=== PATIENT | male | born 1980 | race Hispanic/Latino ===

== ENCOUNTER 2022-03-10 20:49 | Emergency (ER) | payer SELFPAY ==
--- OUTSIDE RECORDS SUMMARY | 2022-03-10 20:53 | XMS REPORT | Continuity of Care Document ---
:1980 Author Organization [facility] t Address [address] [place] [address] Care Team Providers Name Role Phone Pcp, Patient Does Not Have A Primary Care Physician [id number] Cody Melgoza NP Attending Clinician CODY MELGOZA Attending Clinician Unavailable Maria C Dupree Attending Clinician Payers Payer Name Policy Type Policy Number Effective Date Expiration Date S ource Problems Condition Condition Condition Status Onset Resolution Last Treating Co mments Source Name Details Category Date Date Treatment Clinician Date No known No known Disease Unive rs active active ity of problems problems [facility] Allergies, Adverse Reactions, Alerts Allergy Allergy Status Severity Reaction(s) Onset Inactive Treating Comm ents Source Name Type Date Date Clinician No Known DA Active U [facility] Allergie 12-01 [facility] s 00:00: e 00 [facility] NO KNOWN Drug Active Univers ALLERGIE Class ity of S [facility] Social History Social Habit Start Date Stop Date Quantity Comments Source Exposure to Not sure University of SARS-CoV-2 [facility] (event) [place] Tobacco use and 2018-12-07 2018-12-07 Smokeless tobacco [facility] exposure 00:00:00 00:00:00 non-user Alcohol intake 2018-12-07 2018-12-07 Current drinker [facility] 00:00:00 00:00:00 of alcohol (finding) Sex Assigned At [birth year] [facility] 00:00:00 00:00:00 Smoking Status Start Date Stop Date Source Unknown if ever smoked [facility] Never smoked tobacco [facility] ospital Medications Ordered Filled Start Stop Current Ordering Indication Dosage Frequency Signature Comments Components Source Medication Medication Date Date Medication? Clinician (SIG) Name Name iopamidol 2020- No [id number] 120mL 120 mL, Univers (ISOVUE 12-02 Intravenou ity o f 370-500 mL) 05:00: 03:49 s, ONCE, 1 [place] injection 00 :00 dose, Tue Medic al 120 mL 12/02/20 at Branch 0000, Routine iopamidol No [id number] 120mL 120 mL, Univers (ISOVUE 12-02 Intravenou ity o f 370-500 mL) 05:00: 03:49 s, ONCE, 1 [place] injection 00 :00 dose, Tue Medic al 120 mL 12/02/20 at Branch 0000, Routine ondansetron Yes [id number] 4mg Take 1 Univers (ZOFRAN 8-31 tablet by ity of ODT) 4 mg 00:00: mouth [place] disintegrat 00 every 8 Medic al ing tablet (eight) Branch hours as needed for Nausea and Vomiting (N/V). ondansetron Yes [id number] 4mg Take 1 Univers (ZOFRAN 8-31 tablet by ity of ODT) 4 mg 00:00: mouth [place] disintegrat 00 every 8 Medic al ing tablet (eight) Branch hours as needed for Nausea and Vomiting (N/V). peg-electro 2020- No [id number] 4000mL Take 4,000 Univers lyte soln 12-02 09-01 mL by ity of (GOLYTELY) 00:00: 04:59 mouth once [place] 236-22.74-6 00 :00 now for 1 Med ical .74 -5.86 dose. Branch gram solution peg-electro 2020- No [id number] 4000mL Take 4,000 Univers lyte soln 12-02 09-01 mL by ity of (GOLYTELY) 00:00: 04:59 mouth once [place] 236-22.74-6 00 :00 now for 1 Med ical .74 -5.86 dose. Branch gram solution ondansetron 2020- No [id number] 4mg Take 1 Univers (ZOFRAN 12-0231 tablet by ity of ODT) 4 mg 00:00: 00:00 mouth [place] disintegrat 00 :00 every 8 Medic al ing tablet (eight) Branch hours as needed for Nausea and Vomiting (N/V). ondansetron 2020- No [id number] 4mg Take 1 Univers (ZOFRAN 12-02- tablet by ity of ODT) 4 mg 00:00: 00:00 mouth [place] disintegrat 00 :00 every 8 Medic al ing tablet (eight) Branch hours as needed for Nausea and Vomiting (N/V). No known No No known Metho di medications 12-[address] 02:59: s [facility] 14 l Polyethylen 2017-0 Yes 1{packe Take 1 U nivers e Glycol 2-17 t} Packet by ity of 3350 17 00:00: mouth [place] gram powder 00 every 24 Medi arile (twenty-fo Branch ur) hours as needed for Constipati on. bisacodyl 2018- Yes 10mg Insert 1 Univ ers (DULCOLAX, 2-17 Suppositor ity of BISACODYL,) 00:00: [place] 10 mg 00 rectum at Medical suppository bedtime as Br anch needed for Constipati on. Polyethylen 2018- Yes 1{packe Take 1 U nivers e Glycol 2-17 t} Packet by ity of 3350 17 00:00: mouth [place] gram powder 00 every 24 Medi ariel (twenty-fo Branch ur) hours as needed for Constipati on. bisacodyl 2018-0 Yes 10mg Insert 1 Univ ers (DULCOLAX, 2-17 Suppositor ity of BISACODYL,) 00:00: [place] 10 mg 00 rectum at Medical suppository bedtime as Br anch needed for Constipati on. Polyethylen 2018-0 Yes 1{packe Take 1 U nivers e Glycol 2-17 t} Packet by ity of 3350 17 00:00: mouth [place] gram powder 00 every 24 Medi ariel (twenty-[facility] ur) hours as needed for Constipati on. bisacodyl 2017-0 Yes 10mg Insert 1 Univ ers (DULCOLAX, 2-17 Suppositor ity of BISACODYL,) 00:00: [place] 10 mg 00 rectum at Medical suppository bedtime as Br anch needed for Constipati on. Vital Signs Vital Name Observation Time Observation Value Comments Source Systolic blood 2020-12-02 06:00:00 143 [facility]Hg[facility] blood 2020-12-02 06:00:00 95 mm[Hg] Unive [facility] Heart rate 2020-12-02 06:00:00 62 /min General acute hospital Respiratory rate 2020-12-02 06:00:00 20 /min [facility] Oxygen saturation in 2020-12-02 06:00:00 98 /min [facility] Arterial blood by [facility] Pulse oximetry [place] Body temperature 2020-12-02 03:08:00 37.17 Sadaf [facility] Body height 2020-12-02 03:08:00 175.3 cm General acute hospital Body weight 2020-12-02 03:08:00 95.255 kg General acute hospital BMI 2020-12-02 03:08:00 31.01 kg/m2 General acute hospital Systolic blood 2018-11-30 03:57:00 135 mm[Hg] Univer [facility] [place] Diastolic blood 2018-11-30 03:57:00 85 mm[Hg] Unive [facility] Heart rate 2018-11-30 03:57:00 76 /min General acute hospital Body temperature 2018-11-30 03:57:00 36.61 Sadaf [facility] Respiratory rate 2018-11-30 03:57:00 18 /min [facility] Body height 2018-11-30 03:57:00 175.3 cm [facility] [place] [facility] [place] Body weight 2018-11-30 03:57:00 90.719 kg [facility]i [facility] [place] [facility] [place] BMI 2018-11-30 03:57:00 29.53 kg/m2 Universi ty [facility] [place] Oxygen saturation in 2018-11-30 03:57:00 97 /min University of Arterial blood by [facility] Pulse oximetry Branch Systolic blood 2018-11-30 03:57:00 135 mm[Hg] Univer [facility] Diastolic blood 2018-11-30 03:57:00 85 mm[Hg] Unive rsity of [facility] Heart rate 2018-11-30 03:57:00 76 /min Universi ty [facility] Body temperature 2018-11-30 03:57:00 36.61 Sadaf [facility] Respiratory rate 2018-11-30 03:57:00 18 /min [facility] Body height 2018-11-30 03:57:00 175.3 cm Universi ty [facility] [place] Body weight 2018-11-30 03:57:00 90.719 kg Universi ty [facility] BMI 2018-11-30 03:57:00 29.53 kg/m2 Universi ty [facility] Oxygen saturation in 2018-11-30 03:57:00 97 /min [place] of Arterial blood by [facility] Pulse oximetry Branch Procedures Procedure Date / Time Performed Performing Clinician Sour e COMP. METABOLIC PANEL 2020-12-02 04:37:00 Cody Melgoza [facility] ([id number]) [facility] CBC WITH DIFF 2020-12-02 04:37:00 Cody Melgoza [facility] URINALYSIS 2020-12-02 04:37:00 Cody Melgoza [facility] CT ABDOMEN PELVIS W 2020-12-02 03:52:23 Cody Melgoza [facility] NOTICE OF PRIVACY 2020-12-02 03:33:52 Doctor Unassigned, [facility] CONSENT/REFUSAL FOR 2020-12-02 03:00:05 Doctor Unassigned, No [facility] AND Name Medical Branch TREATMENT CONSENT/REFUSAL FOR 2018-11-30 04:09:43 Doctor Unassigned, No Un [facility] DIAGNOSIS AND Name Medical Branch TREATMENT Plan of Care Planned Activity Planned Date Details Comments Source Future Scheduled 2022-02-07 [facility] 17:24:49 (#1) [code = COVID-19 VACCINE (#1)] Future Scheduled 2022-02-07 INFLUENZA VACCINE Method [facility] Test 17:24:49 [code = INFLUENZA VACCINE] Future Scheduled 2022-02-07 [facility] Test 17:24:49 VACCINES (1 of 3 - 3-dose series) [code = HEPATITIS B VACCINES (1 of 3 - 3-dose series)] Encounters Start End Encounter Admission Attending Care Care Encounter Source Date/Time Date/Time Type Type Clinicians Facility Department ID 2020-12-01 2020-12-02 Emergency [facility] [id number] Univers 22:09:00 01:41:00 Cody Zelaya [id number] ity [facility] [id number] [facility] [id number] [address] 2020-12-01 2020-12-01 Emergency X [facility] ERT [id number] Univers 22:09:00 22:09:00 CODY gomez [facility] 2018-11-29 2018-11-30 Emergency [facility] [id number] 23:00:10 00:22:00 Maria C Zelaya [id number] [place] [id number] [place] [id number] [facility] 2018-11-29 2018-11-30 Emergency [facility] [id number] Univers 23:00:10 00:22:00 Maria C Zelaya [id number] i ty of [place] [id number] [facility] [id number] [address] Results Test Description Test Time Test Comments Results Result Comments Source CBC WITH DIFF 2020-12-02 05:59:06 Test Item Value Reference Range Interpretation Comme nts WBC (test code = 6690-2) See_Comment [A utomated message] The system which ge nerated this result transmit erin reference range: 4.20 - 1 0.70 10*3/?L. The reference r ligia was not used to interpr et this result as normal/abnor mal. RBC (test code = 789-8) See_Comment [Au tomated message] The system which playnik nerated this result transmit erin reference range: 4.26 - 5 .52 10*6/?L. The reference r ligia was not used to interpr et this result as normal/abnor mal. HGB (test code = 718-7) 14.8 g/dL 12.2-16.4 HCT (test code = 4544-3) 45.0 % 38.4-49.3 MCV (test code = 787-2) 89.6 fL 81.7-95.6 MCH (test code = 785-6) 29.5 pg 26.1-32.7 MCHC (test code = 786-4) 32.9 g/dL 31.2-35.0 RDW-SD (test code = 18671-5) 43.6 fL 38.5-51.6 RDW-CV (test code = 788-0) 13.3 % 12.1-15.4 PLT (test code = 777-3) See_Comment [Au tomated message] The system which playnik nerated this result transmit erin reference range: 150 - 32 8 10*3/?L. The reference range was not used to interpret th is result as normal/abnormal . MPV (test code = 82404-2) 11.3 fL 9.8-13.0 NRBC/100 WBC (test code = See_Comment [ Automated message] The 6582330952) system which playnik nerated this result transmit erin reference range: 0.0 - 10 .0 /100 WBCs. The reference r ligia was not used to interpr et this result as normal/abnor mal. NRBC x10^3 (test code = <0.01 See_Comment [Au tomated message] The 2276955572) system which playnik nerated this result transmit erin reference range: 10*3/?L. The reference range was not u sed to interpret this result as normal/abnormal . GRAN MAT (NEUT) % (test code 59.4 % = 770-8) IMM GRAN % (test code = 0.80 % 9856482890) LYMPH % (test code = 736-9) 28.9 % MONO % (test code = 5905-5) 8.9 % EOS % (test code = 713-8) 1.7 % BASO % (test code = 706-2) 0.3 % GRAN MAT x10^3(ANC) (test 5.36 10*3/uL 1.99-6.95 code = 3845248690) IMM GRAN x10^3 (test code = 0.07 10*3/uL 0.00-0.06 H 7058412012) LYMPH x10^3 (test code = 2.61 10*3/uL 1.09-3.23 731-0) MONO x10^3 (test code = 0.80 10*3/uL 0.36-1.02 742-7) EOS x10^3 (test code = 0.15 10*3/uL 0.06-0.53 711-2) BASO x10^3 (test code = 0.03 10*3/uL 0.01-0.09 704-7) Lab Interpretation (test Abnormal code = 87833-4) [facility] WITH [id number] 05:59:06 Test Item Value Reference Range Interpretation Comments WBC (test code = See_Comment [Automated 2490-2) message] The sy stem which generated this result transmitted reference range : 4.20 - 10.70 10*3/?L. The reference range was not used to interpret this result as normal/abnormal . RBC (test code = See_Comment [Automated 669-8) message] The sy stem which generated this result transmitted reference range : 4.26 - 5.52 10*6/?L. The reference range was not used to interpret this result as normal/abnormal . HGB (test code = 14.8 g/dL 12.2-16.4 718-7) HCT (test code = 45.0 % 38.4-49.3 4544-3) MCV (test code = 89.6 fL 81.7-95.6 787-2) MCH (test code = 29.5 pg 26.1-32.7 785-6) MCHC (test code = 32.9 g/dL 31.2-35.0 786-4) RDW-SD (test code = 43.6 fL 38.5-51.6 98408-7) RDW-CV (test code = 13.3 % 12.1-15.4 788-0) PLT (test code = See_Comment [Automated 777-3) message] The sy stem which generated this result transmitted reference range : 150 - 328 10*3/ ?L. The reference r ligia was not used to interpret this result as normal/abnormal . MPV (test code = 11.3 fL 9.8-13.0 07003-8) NRBC/100 WBC (test See_Comment [Automat ed code = 0705229559) message] The system which generated this result transmitted reference range : 0.0 - 10.0 /100 WBCs. The refer ence range was not u sed to interpret th is result as normal/abnormal . NRBC x10^3 (test code <0.01 See_Comment [Auto mated = 9563152139) message] The s ystem which generated this result transmitted reference range : 10*3/?L. The reference range was not used to interpret this result as normal/abnormal . GRAN MAT (NEUT) % 59.4 % (test code = 770-8) IMM GRAN % (test code 0.80 % = 5080711168) LYMPH % (test code = 28.9 % 736-9) MONO % (test code = 8.9 % 5905-5) EOS % (test code = 1.7 % 713-8) BASO % (test code = 0.3 % 706-2) GRAN MAT x10^3(ANC) 5.36 10*3/uL 1.99-6.95 (test code = 1207234870) IMM GRAN x10^3 (test 0.07 10*3/uL 0.00-0.06 H code = 8901087885) LYMPH x10^3 (test code 2.61 10*3/uL 1.09-3.23 = 731-0) MONO x10^3 (test code 0.80 10*3/uL 0.36-1.02 = 742-7) EOS x10^3 (test code = 0.15 10*3/uL 0.06-0.53 711-2) BASO x10^3 (test code 0.03 10*3/uL 0.01-0.09 = 704-7) Lab Interpretation Abnormal (test code = 92399-0) [facility] Test Item Value Reference Range Interpretation Comments APPEARANCE (test code = Clear Clear 1820233645) COLOR (test code = Straw Yellow A 3682371237) PH (test code = 4.8-8.0 2089895185) SP GRAVITY (test code = >1.060 1.003-1.030 H 2595388018) GLU U QUAL (test code = Normal Normal 8972704670) BLOOD (test code = Negative Negative 5731540431) KETONES (test code = Negative Negative 5863761704) PROTEIN (test code = Negative Negative 2887-8) UROBILIN (test code = Normal Normal 5062019774) BILIRUBIN (test code = Negative Negative 0121984642) NITRITE (test code = Negative Negative 4749619731) LEUK TARSHA (test code = Negative Negative 1605481290) RBC/HPF (test code = See_Comment [Autom ated message] 6758282228) The system [employer] generated this result transmitted ref erence range: 0 - 3 HP F. The reference range was not used to int erpret this result as normal/abnormal . WBC/HPF (test code = See_Comment [Autom ated message] 0029287572) The system [employer] generated this result transmitted ref erence range: 0 - 5 HP F. The reference range was not used to int erpret this result as normal/abnormal . BACTERIA (test code = Negative Negative 2804432559) SQ EPITH (test code = <1 HPF 1877801155) Lab Interpretation (test Abnormal code = 99085-3) [facility] Test Item Value Reference Range Interpretation Comments APPEARANCE (test code = Clear Clear 6250843070) COLOR (test code = Straw Yellow A 4517001122) PH (test code = 4.8-8.0 1914701790) SP GRAVITY (test code = >1.060 1.003-1.030 H 5149362360) GLU U QUAL (test code = Normal Normal 7768556088) BLOOD (test code = Negative Negative 7018226298) KETONES (test code = Negative Negative 0541736791) PROTEIN (test code = Negative Negative 2887-8) UROBILIN (test code = Normal Normal 1907967450) BILIRUBIN (test code = Negative Negative 8899287045) NITRITE (test code = Negative Negative 6141664797) LEUK TARSHA (test code = Negative Negative 0322165672) RBC/HPF (test code = See_Comment [Autom ated message] 1534992387) The system [employer] generated this result transmitted ref erence range: 0 - 3 HP F. The reference range was not used to int erpret this result as normal/abnormal . WBC/HPF (test code = See_Comment [Autom ated message] 9464696547) The system [employer] generated this result transmitted ref erence range: 0 - 5 HP F. The reference range was not used to int erpret this result as normal/abnormal . BACTERIA (test code = Negative Negative 2206757957) SQ EPITH (test code = <1 HPF 4659203603) Lab Interpretation (test Abnormal code = 02215-4) [facility][id number][facility]2020-12-02 05:12:43 Test Item Value Reference Range Interpretation Comments NA (test code = 135 mmol/L 135-145 3185142172) K (test code = 4.0 mmol/L 3.5-5.0 9231266118) CL (test code = 99 mmol/L 98-108 5990928535) CO2 TOTAL (test code = 28 mmol/L 23-31 7318149758) AGAP (test code = 2-16 6879283416) BUN (test code = 16 mg/dL 7-23 3395947273) GLUCOSE (test code = 80 mg/dL 70-110 4973094322) CREATININE (test code = 0.81 mg/dL 0.60-1.25 0499050399) TOTAL BILI (test code = 0.6 mg/dL 0.1-1.9 8842736140) CALCIUM (test code = 9.5 mg/dL 8.6-10.6 5288135287) T PROTEIN (test code = 8.2 g/dL 6.3-8.2 9190647619) ALBUMIN (test code = 4.3 g/dL 3.5-5.0 0225595168) ALK PHOS (test code = 108 U/L 34-122 9391380338) ALTv (test code = 169 U/L 5-50 H 1742-6) AST(SGOT) (test code = 105 U/L 13-40 H 0635128696) eGFR (test code = mL/min/1.73m2 9124779788) MEKA (test code = MEKA) Association of Glomerular Filtration Rate (GFR) and Staging of Kidney Disease* + --+ --+ ------+| GFR (mL/min/1.73 m2) ?| With Kidney Damage ?| ?Without Kidney Damage+ --------+ --------+ +| ?>90 ?| ?Stage one ?| ? Normal ?+ ---+ ---+ -------+| ?60-89 ?| ?Stage two ?| ? Decreased GFR ? + --+ --+ ------+| ?30-59 ?| ?Stage three ?| ? Stage three ? + --+ --+ ------+| ?15-29 ?| ?Stage four ? | ? Stage four ?+ ---+ ---+ -------+| ?<15 (or dialysis) ? ?| ?Stage five ? | ? Stage five ?+ ---+ ---+ -------+ *Each stage assumes the associated GFR level has been in effect for at least three months. ?Stages 1 to 5, with or without kidney disease, indicate chronic kidney disease. Notes: Determination of stages one and two (with eGFR >59mL/min/1.73 m2) requires estimation of kidney damage for at least three months as defined by structural or functional abnormalities of the kidney, manifested by either:Pathological abnormalities or Markers of kidney damage (including abnormalities in the composition of the blood or urine or abnormalities in imaging tests). Lab Interpretation Abnormal (test code = 93323-3) [facility]. METABOLIC PANEL ([id number])2020-12-02 05:12:43 Test Item Value Reference Range Interpretation Comments NA (test code = 8045037505) 135 mmol/L 135-145 K (test code = 9436165842) 4.0 mmol/L 3.5-5.0 CL (test code = 8171202884) 99 mmol/L 98-108 CO2 TOTAL (test code = 3360214203) 28 mmol/L 23-31 AGAP (test code = 4860767368) 2-16 BUN (test code = 8505949776) 16 mg/dL 7-23 GLUCOSE (test code = 7758072032) 80 mg/dL 70-110 CREATININE (test code = 0.81 mg/dL 0.60-1.25 4415888692) TOTAL BILI (test code = 0.6 mg/dL 0.1-1.7 1031642155) CALCIUM (test code = 3262233192) 9.5 mg/dL 8.6-10.6 T PROTEIN (test code = 4150194656) 8.2 g/dL 6.3-8.2 ALBUMIN (test code = 1860743403) 4.3 g/dL 3.5-5.0 ALK PHOS (test code = 6200866450) 108 U/L 34-122 ALTv (test code = 1742-6) 169 U/L 5-50 H AST(SGOT) (test code = 1866793463) 105 U/L 13-40 H eGFR (test code = 9815679023) mL/min/1.73m2 MEKA (test code = MEKA) Lab Interpretation (test code = Abnormal 03824-1) [facility]- XR ABD ACUTE [id number] 15:35:00 Name: LUNA HIRSCH [facility] : 1980 Age/S:38 /M [address] [facility] Unit#:[id number] Loc: [place] [address] Phys: Clay Kennedy MD DisDate: PHONE #: [phone] Status: REG ER FAX #: [phone] Exam Date: 12/01/2018 Reason: constipation EXAMS: CPT CODE: [id number] XR ABD ACUTE W/CHEST 04115 EXAM: Acute abdomen series with chest; 4views; INFORMATION: Constipation; abdominal pain; FINDINGS: Unremarkable bowel gas pattern; moderate amount of stool within the colon; no evidence of bowel obstruction; no free intraperitoneal air. Pelvic phleboliths; no other abnormal calcifications. The chest x-ray shows no abnormality; lungs are clear; no infiltrates, no edema; no effusions; no pneumothorax. Unremarkable cardiac mediastinal silhouette. IMPRESSION: No evidence of acute abdominal, pelvic or thoracic abnormalities. at 1534 Reported and signed by: Mikal Barrett M.D. CC: Clay Kennedy MD Technologist: LUCIAN BERNARD, (R),CT Trnscrpt Data: 12/01/2018 (5590) tANA Orig Print D/T: S: 12/01/2018 (7032) PAGE 1 Signed Report"
[2022-03-10 21:50] LABS: Urine Blood 3+ (Negative); Urine Glucose Negative (Negative); Urine Protein 1+ (Negative); Urine Specific Gravity 1.025 (1.005-1.030)
[2022-03-10 22:08] LABS: Urine Crystals Unidentified Few /HPF (None Seen); Urine RBC >50 /HPF (None Seen)
[2022-03-10 23:52] LABS: Hematocrit 41.3 % (39.6-49.0); MCV 88.2 fL (80-100); MPV 9.3 fL (7.6-11.3); RBC Red Blood Cell Count 4.68 M/uL (4.33-5.43)
[2022-03-11 00:04] LABS: Albumin 3.4 g/dL (3.4-5.0); Bilirubin Total 0.3 mg/dL (0.2-1.0); Potassium 3.8 mmol/L (3.5-5.1); Protein, Total 7.3 g/dL (6.4-8.2)
--- NOTE | 2022-03-11 00:56 | ER ---
Nurse's Notes [facility] Name: Hair Powers Age: 41 yrs Sex: Male : 1980 Arrival Date: 03/10/2022 Time: 20:53 Bed 5 Private MD: Diagnosis: Gross hematuria;Kidney Stone/ Calculus in urethra Presentation: 03/10 21:01 Chief complaint: Chief complaint: Patient states: "This morning I my parts were tw5 bothering me. I went home early from work. About two hours ago and I went to the restroom and I was urinating blood. ". Coronavirus screen: Vaccine status: Patient reports being unvaccinated. Ebola Screen: Patient negative for fever greater than or equal to 101.5 degrees Fahrenheit, and additional compatible Ebola Virus Disease symptoms Patient denies exposure to infectious person. Patient denies travel to an Ebola-affected area in the 21 days before illness onset. Initial Sepsis Screen: Does the patient meet any 2 criteria? No. Patient's initial sepsis screen is negative. Does the patient have a suspected source of infection? No. Patient's initial sepsis screen is negative. Risk Assessment: Do you want to hurt yourself or someone else? Patient reports no desire to harm self or others. Onset of symptoms was March 10, 2022 at 19:00. 21:01 Method Of Arrival: Ambulatory tw5 21:01 Acuity: ALEXIS 3 tw5 Triage Assessment: 21:03 General: Appears uncomfortable, Behavior is calm, cooperative, appropriate for age. tw5 Pain: Complains of pain in suprapubic area Pain currently is 8 out of 10 on a pain scale. : Reports incontinence, urgency. Historical: - Allergies: 21:03 No Known Allergies; tw5 - Home Meds: 21:03 None [Active]; tw5 - PMHx: 21:03 None; tw5 - PSHx: 21:03 Appendectomy; tw - Immunization history:: Flu vaccine is not up to date. - Social history:: Smoking status: Patient denies any tobacco usage or history of. Screenin:36 Abuse screen: Denies threats or abuse. Nutritional screening: No deficits noted. kl Tuberculosis screening: No symptoms or risk factors identified. Fall Risk None identified. Assessment: 21:15 General: Appears uncomfortable, Behavior is calm, cooperative. Pain: Complains of pain ll3 in pelvis Pain does not radiate. Neuro: Level of Consciousness is awake, alert, obeys commands, Oriented to person, place, time, situation. Respiratory: Respiratory effort is even, unlabored, Respiratory pattern is regular, symmetrical. : Urine is blood tinged, Reports incontinence, pain. Derm: Skin is pink, warm \\T\\ dry. 22:37 Reassessment: Patient appears in no apparent distress at this time. Patient and/or kl family updated on plan of care and expected duration. Pain level reassessed. Patient is alert, oriented x 3, equal unlabored respirations, skin warm/dry/pink. 23:20 Reassessment: Patient and/or family updated on plan of care and expected duration. Pain ll3 level reassessed. Patient is alert, oriented x 3, equal unlabored respirations, skin warm/dry/pink. 03/11 00:45 Reassessment: Patient appears in no apparent distress at this time. Patient and/or kl family updated on plan of care and expected duration. Pain level reassessed. Patient is alert, oriented x 3, equal unlabored respirations, skin warm/dry/pink. Patient states feeling better. Vital Signs: 03/10 21:01 BP 131 / 81; Pulse 57; Resp 18; Temp 98.3; Pulse Ox 96% on R/A; Weight 95.25 kg; Height tw5 5 ft. 8 in. (172.72 cm); Pain 8/10; 22:36 BP 122 / 83; Pulse 68; Resp 20; Pulse Ox 99% on R/A; kl 23:20 BP 136 / 76; Pulse 54; Resp 16; Pulse Ox 100% on R/A; ll3 03/11 01:29 BP 113 / 85; Pulse 72; Resp 18; Pulse Ox 99% on R/A; Pain 0/10; kl 03/10 21:01 Body Mass Index 31.93 (95.25 kg, 172.72 cm) tw5 ED Course: 03/10 20:53 Patient arrived in ED. ja2 21:03 Triage completed. tw5 21:03 Arm band placed on. tw5 21:18 Vale Huff PA-C is PHCP. sb4 21:18 Jayro Fong MD is Attending Physician. sb4 22:36 No provider procedures requiring assistance completed. Inserted saline lock: 20 gauge kl in left antecubital area, using aseptic technique. Blood collected. 23:20 Tiffany Evans, RN is Primary Nurse. ll3 03/11 00:35 CT Abd/Pelvis - IV Contrast Only In Process Unspecified. EDMS 00:55 Aquiles Brady MD is Referral Physician. sb4 01:00 No apparent distress. Resting quietly. Appears to be sleeping. kl 01:30 Patient transferred, IV remains in place. intact, bleeding controlled, No kl redness/swelling at site. Pressure dressing applied. 01:31 Patient has correct armband on for positive identification. kl Administered Medications: 01:29 Drug: Flomax (tamsulosin) 0.4 mg Route: PO; kl Medication: 01:30 VIS not applicable for this client. kl Outcome: 00:56 Discharge ordered by . sb4 01:30 Discharged to home ambulatory. kl 01:30 Condition: improved 01:30 Discharge instructions given to patient, Instructed on discharge instructions, follow up and referral plans. medication usage, Demonstrated understanding of instructions, follow-up care, medications, Prescriptions given X 3. 01:31 Patient left the ED. kl Signatures: Dispatcher [employer] EDMA Susaan Moreno RN RN kl Alexander, Jessica ja2 Wood, Tiffany tw5 Tiffnay Evans RN RN 3 Vale Huff, PA-C PA-C sb4 Corrections: (The following items were deleted from the chart) 03/10 21:03 21:03 PSHx: None; tw5 tw5
--- NOTE | 2022-03-11 00:57 | EDPHYS ---
Physician Documentation [facility] Name: Hair Powers Age: 41 yrs Sex: Male : 1980 Arrival Date: 03/10/2022 Time: 20:53 Bed 5 Private MD: ED Physician Jayro Fong HPI: 03/10 21:41 This 41 yrs old Male presents to ER via Ambulatory with complaints of sb4 hematuria. 21:41 Onset: The symptoms/episode began/occurred today. Patient reports that he noticed blood sb4 in his urine today. He states that the urine gradually became more concentrated with blood. He denies any pain. He does report urinary urgency. States he does have a history of kidney stones, but it does not feel like this. He denies any medical problems or any daily medications.. Historical: - Allergies: 21:03 No Known Allergies; tw5 - Home Meds: 21:03 None [Active]; tw5 - PMHx: 21:03 None; tw5 - PSHx: 21:03 Appendectomy; tw5 - Immunization history:: Flu vaccine is not up to date. - Social history:: Smoking status: Patient denies any tobacco usage or history of. ROS: 21:41 Constitutional: Negative for fever, chills, and weight loss, Eyes: Negative for injury, sb4 pain, redness, and discharge, ENT: Negative for injury, pain, and discharge, Cardiovascular: Negative for chest pain, palpitations, and edema, Respiratory: Negative for shortness of breath, cough, wheezing, and pleuritic chest pain, Abdomen/GI: Negative for abdominal pain, nausea, vomiting, diarrhea, and constipation, MS/Extremity: Negative for injury and deformity, Skin: Negative for injury, rash, and discoloration. Exam: 21:41 Constitutional: This is a well developed, well nourished patient who is awake, alert, sb4 and in no acute distress. Head/Face: Normocephalic, atraumatic. Eyes: Pupils equal round and reactive to light, extra-ocular motions intact. Periorbital areas with no swelling, redness, or edema. Cardiovascular: Regular rate and rhythm with a normal S1 and S2. Respiratory: Lungs have equal breath sounds bilaterally, clear to auscultation and percussion. No rales, rhonchi or wheezes noted. No increased work of breathing, no retractions or nasal flaring. Abdomen/GI: Soft, non-tender, no distension. Skin: Warm, dry with normal turgor. Normal color with no rashes, no lesions, and no evidence of cellulitis. Vital Signs: 21:01 BP 131 / 81; Pulse 57; Resp 18; Temp 98.3; Pulse Ox 96% on R/A; Weight 95.25 kg; Height tw5 5 ft. 8 in. (172.72 cm); Pain 8/10; 22:36 BP 122 / 83; Pulse 68; Resp 20; Pulse Ox 99% on R/A; kl 23:20 BP 136 / 76; Pulse 54; Resp 16; Pulse Ox 100% on R/A; ll3 03/11 01:29 BP 113 / 85; Pulse 72; Resp 18; Pulse Ox 99% on R/A; Pain 0/10; kl 03/10 21:01 Body Mass Index 31.93 (95.25 kg, 172.72 cm) tw5 MDM: 03/10 21:21 Patient medically screened. sb4 03/11 00:56 Data reviewed: vital signs, lab test result(s), radiologic studies, and as a result, I sb4 will discharge patient. 03/10 21:50 Order name: Urine Microscopic Only; Complete Time: 22:09 sb4 03/10 21:50 Order name: Urine Dipstick-Ancillary; Complete Time: 21:51 EDMS 03/10 22:15 Order name: CBC w/o diff; Complete Time: 00:03 sb4 03/10 22:15 Order name: CMP; Complete Time: 00:06 sb4 03/10 22:15 Order name: CT Abd/Pelvis - IV Contrast Only sb4 03/10 21:09 Order name: Urine Dipstick-Ancillary (obtain specimen); Complete Time: 21:52 sb4 Administered Medications: 01:29 Drug: Flomax (tamsulosin) 0.4 mg Route: PO; kl Disposition Summary: 03/11/22 00:56 Discharge Ordered Location: Home sb4 Problem: new sb4 Symptoms: are unchanged sb4 Condition: Stable sb4 Diagnosis - Gross hematuria sb4 - Kidney Stone/ Calculus in urethra sb4 Followup: sb4 - With: - When: As needed - Reason: Worsening of condition, Recheck today's complaints, Re-evaluation by your physician Discharge Instructions: - Discharge Summary Sheet sb4 - Kidney Stones, [id number] sb4 - Form - Return To Work sb4 Forms: - Medication Reconciliation Form sb4 - Thank You Letter sb4 - Antibiotic Education sb4 - Prescription Opioid Use sb4 - Work release form ds4 Prescriptions: - Flomax 0.4 mg Oral capsule - take 1 capsule by ORAL route once daily for 5 days; 5 capsule; Refills: 0, sb4 Product Selection Permitted - Cipro 500 mg Oral Tablet - take 1 tablet by ORAL route every 12 hours for 10 days; 20 tablet; Refills: 0, sb4 Product Selection Permitted - Diclofenac Sodium 75 mg Oral Tablet Sustained Release - take 1 tablet by ORAL route 2 times per day; 30 tablet; Refills: 0, Product sb4 Selection Permitted Signatures: Dispatcher [employer] Susana Lin, RN Sandee Lancaster tw5 Vale Huff PA-C PA-C sb4 Corrections: (The following items were deleted from the chart) 03/10 21:03 21:03 PSHx: None; 5 tw5
[2022-03-11] MEDS ORDERED: TAMSULOSIN 0.4 MG SR CAP ONE (01:20)
[2022-03-11 06:38] VITALS: TEMP 98.3
[2022-03-11 06:41] VITALS: BP 113/85; O2SAT 99
--- NOTE | 2022-03-11 12:48 | RAD REPORT ---
EXAM DESCRIPTION: CT - Abdomen Pelvis W Contrast - 03/11/2022 6:51 am CLINICAL HISTORY: 41 years Male, hematuria TECHNIQUE: Helical CT axial images are obtained from the lung bases to the pubic symphysis with IV c ontrast. No oral contrast was administered. Multiplanar reconstruction. This exam was performed accor ding to our departmental dose-optimization program, which includes automated exposure control, adjust ment of the mA and/or kV according to patient size and/or use of iterative reconstruction technique. COMPARISON: May 24, 2017 FINDINGS: LUNG BASES: No basilar consolidation or effusions. LIVER: Normal in size. Moderate diffuse decreased attenuation. No focal masses. HEPATOBILIARY: Partially contracted gallbladder. No intra- or extrahepatic ductal dilatation. SPLEEN: Normal size. PANCREAS: Normal size and contour. No focal mass. ADRENAL GLANDS: Normal size. No adrenal masses. KIDNEYS: Bilateral kidneys are normal in size without obstructing calculi or hydronephrosis. No nep hrolithiasis. Interval development of small focus of cortical defect medial right upper pole at site of previously seen 3.5 cm simple renal cyst. Left upper pole lateral couple of simple renal cysts catherine suring up to 1.0 cm, no further workup is warranted. No focal solid mass. BOWEL AND MESENTERY: Mild wall thickening with pericolonic fat stranding at the junction of the desce nding and sigmoid colon with subjacent diverticula which may represent sequela of prior diverticuliti s versus low-grade diverticulitis. Superimposed pandiverticulosis. No small or large bowel dilatation . The appendix is not visualized, no secondary signs of appendicitis. No abnormal mesenteric lymphade nopathy. No free fluid or pneumoperitoneum. RETROPERITONEUM: Normal caliber abdominal aorta without aneurysm. No abnormal retroperitoneal lymphad enopathy. PELVIS: There is a 6 x 10 mm calculus within the prostatic portion of the urethra. Urinary bladde r is unremarkable. No prostatomegaly. ABDOMINAL WALL: The abdominal wall is intact. BONES: No suspicious osseous lytic or blastic lesions seen. IMPRESSION: 1. A 6 x 10 mm calculus within the prostatic portion of the urethra. No prostatomegaly . No nephroureterolithiasis or obstructive uropathy. 2. Mild wall thickening with pericolonic fat stranding at the junction of the descending and sigmoi d colon with subjacent diverticula which may represent sequela of prior diverticulitis versus low-gra de diverticulitis. 3. Interval development of small focus of cortical defect medial right upper pole at site of previo usly seen 3.5 cm simple renal cyst, no further workup is warranted. 4. Moderate hepatic steatosis. Electronically signed by: Mark Green MD 03/11/2022 12:58 AM PLASTIC DIE MAKER APPRENTICE Due to temporary technical issues with the PACS/Fluency reporting system, reports are being signed by the in house radiologists without review as a courtesy to insure prompt reporting. The interpreting radiologist is fully responsible for the content of the report.
== END 2022-03-11 01:31 | disposition home or self-care (01) ==
LOC: ER 20:49
DX: N20.0 Calculus of kidney (principal); N21.1 Calculus in urethra; Z87.442 Personal history of urinary calculi
CPT/HCPCS: 36415; 74177; 80053; 81003; 81015; 85027; 99284; Q9967

== ENCOUNTER → 2023-04-02 | Emergency (ER) | payer SELFPAY ==
[~2023-04-02] MED LIST: CEFTRIAXONE 1000 MG/VIAL ONE; KETOROLAC 30 MG/ML INJ ONE; ONDANSETRON 4 MG/2 ML VIAL ONE
--- NOTE | 2023-04-02 18:23 | RAD REPORT ---
EXAM DESCRIPTION: US - Scrotum Testicles - 04/02/2023 5:47 pm CLINICAL HISTORY: Testicular pain COMPARISON: None FINDINGS: Right testicle measures 4.4 x 2.5 x 3.2 centimeters. Echotexture is homogeneous. Normal bl ood flow Left testicle measures c 4 x 2.8 x 2.9 centimeters. Echotexture is homogeneous. Normal blood flow Left epididymis is enlarged with increased blood flow. 1.3 centimeter isoechoic round structure abutt ing the left epididymis represents a torsion of the appendix testis. No blood flow noted Right epididymis is normal in size and echotexture. Small to moderate left hydrocele IMPRESSION: Left epididymitis Torsion of the left appendix testis Normal left testicle
--- NOTE | 2023-04-02 18:58 | RAD REPORT ---
EXAM DESCRIPTION: CT - Stone Protocol - 04/02/2023 6:41 pm CLINICAL HISTORY: Abdominal pain. Left flank pain COMPARISON: 2021 TECHNIQUE: Computed axial tomography of the abdomen pelvis was obtained without oral or IV contrast. Lack of IV and oral contrast limits evaluation of solid organs, appendix, bowel, and vessels. Guan l reformatted images were obtained and reviewed. All CT scans are performed using dose optimization technique as appropriate and may include automated exposure control or mA/KV adjustment according to patient size. FINDINGS: A renal calculus is not seen. An ureteral calculus is not noted. A bladder calculus is not present. No hydronephrosis. Left renal cortical thinning Fatty liver The Spleen, pancreas and adrenals appear grossly normal Diverticula stem from the colon without evidence of diverticulitis. Left scrotal skin thickening. Small to moderate left hydrocele. Left scrotal calcification Mild to moderate anterior subluxation of L5 on S1 with spondylolysis L5 IMPRESSION: Negative for a genitourinary calculus Left scrotal skin thickening. Small to moderate left hydrocele. Refer to a testicular ultrasound same date for additional findings
[2023-04-02 20:26] LABS: Absolute Lymphocytes (CBC) 2.1 K/uL (0.7-4.9); Lymphocytes % 18.8 % (15.3-44.8); MCV 87.7 fL (80-100); MPV 8.4 fL (7.6-11.3); Platelets 279 thou/uL (152-406); RBC Red Blood Cell Count 5.01 M/uL (4.33-5.43)
[2023-04-02 20:47] LABS: Albumin 3.6 g/dL (3.4-5.0); Bilirubin Total 0.7 mg/dL (0.2-1.0); Potassium 4.1 mEq/L (3.5-5.1); Protein, Total 8.6 g/dL (6.4-8.2)
[2023-04-02 20:48] LABS: Specific Gravity 1.014 (1.005-1.030); Urine Bacteria <20 /HPF (<20); Urine Bilirubin NEGATIVE (Negative); Urine Blood Trace (Negative); Urine Clarity Turbid (Clear); Urine Color Light-Yellow (Yellow); Urine Glucose NEGATIVE (Negative); Urine Mucus Slight /HPF (None Seen); Urine Protein NEGATIVE (Negative); Urine RBC <5 /HPF (None Seen); Urine Urobilinogen Normal (Normal); Urine pH 5.5 (5.0-7.0)
--- NOTE | 2023-04-02 21:41 | ER ---
Nurse's Notes [facility] Name: Hair Powers Age: 42 yrs Sex: Male : 1980 Arrival Date: 04/02/2023 Time: 16:45 Bed 9 Private MD: Diagnosis: Epididymitis Presentation: 04/02 18:05 Chief complaint: Left flank pain and blood in urine x 3-4 days, left testicular hb swelling since yesterday, Denies N/V. Coronavirus screen: At this time, the client does not indicate any symptoms associated with coronavirus-19. Ebola Screen: No symptoms or risks identified at this time. Initial Sepsis Screen: Does the patient meet any 2 criteria? No. Patient's initial sepsis screen is negative. Does the patient have a suspected source of infection? No. Patient's initial sepsis screen is negative. Risk Assessment: Do you want to hurt yourself or someone else? Patient reports no desire to harm self or others. Onset of symptoms was March 29, 2023. 18:05 Method Of Arrival: Ambulatory hb 18:05 Acuity: ALEXIS 3 hb Historical: - Allergies: 18:07 No Known Drug Allergies; hb - Home Meds: 18:07 None [Active]; hb - PMHx: 18:07 None; hb - PSHx: 18:07 Appendectomy; hb - Immunization history:: Client reports having NOT received the Covid vaccine. Flu vaccine is not up to date. It has been more than one year since last vaccine. - Social history:: Smoking status: Patient denies any tobacco usage or history of. Screenin:56 [facility] ED Fall Risk Assessment (Adult) History of falling in the last 3 months, pf1 including since admission No falls in past 3 months (0 pts) Confusion or Disorientation No (0 pts) Intoxicated or Sedated No (0 pts) Impaired Gait No (0 pts) Mobility Assist Device Used No (0 pt) Altered Elimination No (0 pt) Score/Fall Risk Level 0 - 2 = Low Risk Oriented to surroundings, Maintained a safe environment, Educated pt \T\ family on fall prevention, incl call for assistance when getting out of bed, Assessed \T\ reinforced patient's understanding of fall precautions, Provided non-skid footwear, Hourly rounding (assess needs \T\ fall precautionary measures) done, Used ambulatory aids as needed (educated on \T\ assisted with), Used gait belt as appropriate. Abuse screen: Denies threats or abuse. Nutritional screening: No deficits noted. Tuberculosis screening: No symptoms or risk factors identified. Assessment: 19:23 General: Appears in no apparent distress. uncomfortable, well groomed, well developed, pf1 Behavior is calm, cooperative, appropriate for age, quiet. 19:23 Pain: Complains of pain in back and pelvis and left testicular pain Pain currently is 4 pf1 out of 10 on a pain scale. Neuro: No deficits noted. Level of Consciousness is awake, alert, obeys commands, Oriented to person, place, time, situation. Cardiovascular: No deficits noted. Capillary refill < 3 seconds Patient's skin is warm and dry. Respiratory: No deficits noted. Airway is patent Respiratory effort is even, unlabored, Respiratory pattern is regular, symmetrical. GI: Reports lower abdominal pain, pelvis. : Reports hematuria. EENT: No deficits noted. No signs and/or symptoms were reported regarding the EENT system. Derm: No deficits noted. No signs and/or symptoms reported regarding the dermatologic system. 20:30 Reassessment: Patient appears in no apparent distress at this time. Patient and/or pf1 family updated on plan of care and expected duration. Pain level reassessed. Patient is alert, oriented x 3, equal unlabored respirations, skin warm/dry/pink. Vital Signs: 18:05 BP 130 / 100; Pulse 94; Resp 16; Temp 99.3(TE); Pulse Ox 100% on R/A; Weight 99.79 kg; hb Height 5 ft. 9 in. ; Pain 4/10; 19:30 BP 151 / 102; Pulse 80; Resp 16; Pulse Ox 100% ; Pain 4/10; pf1 20:30 BP 150 / 96; Pulse 87; Resp 16; Pulse Ox 100% on R/A; pf1 21:30 BP 144 / 86; Pulse 80; Resp 16; Pulse Ox 100% on R/A; pf1 18:05 Body Mass Index 32.49 (99.79 kg, 175.26 cm) hb 18:05 Pain Scale: Adult hb 19:30 Pain Scale: Adult pf1 ED Course: 16:48 Patient arrived in ED. ts1 17:02 [facility] Gal[facility]C [facility] kb 17:02 Keon Chaudhary MD is Attending Physician. kb 17:49 US Scrotum Testicles In Process Unspecified. EDMS 18:07 Triage completed. hb 18:08 Arm band placed on. hb 18:43 CT Stone Protocol In Process Unspecified. EDMS 19:23 Patient has correct armband on for positive identification. Bed in low position. Call pf1 light in reach. 19:23 Arm band placed on right wrist. pf1 20:57 No provider procedures requiring assistance completed. pf1 22:10 Provided Education on: prescription. pf1 22:10 IV discontinued, intact, bleeding controlled, No redness/swelling at site. Pressure pf1 dressing applied. Administered Medications: 21:55 Drug: Ketorolac IVP 15 mg IVP once Route: IVP; Site: right antecubital; pf1 22:10 Follow up: Response: No adverse reaction; Marked relief of symptoms; Pain is decreased pf1 21:55 Drug: Rocephin IV 1 grams IV at calculated rate once; Given slow IV push per pharmacy pf1 instructions Route: IV; Rate: calculated rate; Site: right antecubital; 22:10 Follow up: Response: No adverse reaction; IV Status: Completed infusion pf1 22:00 Drug: Ondansetron IVP 4 mg IVP once; over 2 minutes Route: IVP; Site: right antecubital;pf1 22:10 Follow up: Response: No adverse reaction; Marked relief of symptoms pf1 Medication: 22:10 VIS not applicable for this client. pf1 Outcome: 21:41 Discharge ordered by MD. kb 22:10 Discharged to home ambulatory, pf1 22:10 Condition: improved 22:10 Discharge instructions given to patient, Instructed on discharge instructions, follow up and referral plans. Demonstrated understanding of instructions, follow-up care, medications, Prescriptions given X 1, 22:24 Patient left the ED. pf1 Signatures: Dispatcher [employer] EDMS Estelita Galo FNP-C FNP-Ckb Baxter, Heather RN RN Mariel Coyle RN RN pf1 Maria C Conway, HASEEB PAS ts1 Corrections: (The following items were deleted from the chart) 04/03 06:22 06:21 Patient has correct armband on for positive identification. Bed in low position. pf1 Call light in reach. pf1
--- NOTE | 2023-04-02 21:41 | EDPHYS ---
Physician Documentation [facility] Name: Hair Powers Age: 42 yrs Sex: Male : 1980 Arrival Date: 04/02/2023 Time: 16:45 Bed 9 Private MD: ED Physician Keon Chaudhary HPI: 04/02 22:34 This 42 yrs old Male presents to ER via Ambulatory with complaints of kb Testicular Swelling, Urinary Problem. 22:34 Patient is a 42-year-old male with no medical history who presents for hematuria and kb left flank pain for 2 days with left testicular swelling that started today. Also reports foul-smelling urine. Denies fever, testicular pain.. Historical: - Allergies: 18:07 No Known Drug Allergies; hb - Home Meds: 18:07 None [Active]; hb - PMHx: 18:07 None; hb - PSHx: 18:07 Appendectomy; hb - Immunization history:: Client reports having NOT received the Covid vaccine. Flu vaccine is not up to date. It has been more than one year since last vaccine. - Social history:: Smoking status: Patient denies any tobacco usage or history of. ROS: 22:36 Constitutional: Negative for fever, chills, and weight loss, kb 22:36 : Positive for flank pain, hematuria, foul smelling urine, testicular swelling, 22:36 All other systems are negative, Exam: 22:36 Constitutional: This is a well developed, well nourished patient who is awake, alert, kb and in no acute distress. Head/Face: Normocephalic, atraumatic. ENT: Moist Mucous membranes Cardiovascular: Regular rate Respiratory: Respirations even and unlabored. No increased work of breathing. Talking in full sentences Abdomen/GI: Soft, non-tender. No distention Back: No spinal tenderness. No costovertebral tenderness. Full range of motion. Skin: Warm, dry with normal turgor. Normal color. MS/ Extremity: Pulses equal, no cyanosis. Neurovascular intact. Full, normal range of motion. Neuro: Awake and alert, GCS 15, oriented to person, place, time, and situation. Moves all extremities. Normal gait. 22:36 : CVA tenderness, is absent, Male external genitalia: tenderness, of the left testicle is noted, of the epididymis area, that is moderate, Vital Signs: 18:05 BP 130 / 100; Pulse 94; Resp 16; Temp 99.3(TE); Pulse Ox 100% on R/A; Weight 99.79 kg; hb Height 5 ft. 9 in. ; Pain 4/10; 19:30 BP 151 / 102; Pulse 80; Resp 16; Pulse Ox 100% ; Pain 4/10; pf1 20:30 BP 150 / 96; Pulse 87; Resp 16; Pulse Ox 100% on R/A; pf1 21:30 BP 144 / 86; Pulse 80; Resp 16; Pulse Ox 100% on R/A; pf1 18:05 Body Mass Index 32.49 (99.79 kg, 175.26 cm) hb 18:05 Pain Scale: Adult hb 19:30 Pain Scale: Adult pf1 MDM: 17:02 Patient medically screened. kb 22:35 Differential diagnosis: UTI, Epididymitis, testicular torsion, kidney stone. Data kb reviewed: vital signs, nurses notes. Counseling: I had a detailed discussion with the patient and/or guardian regarding the historical points, exam findings, and any diagnostic results supporting the discharge/admit diagnosis, lab results, radiology results, the need for outpatient follow up, a urologist, to return to the emergency department if symptoms worsen or persist or if there are any questions or concerns that arise at home. ED course: Discussed ultrasound findings, including left appendix testes torsion with Dr. Chaudhary who recommends outpatient follow-up. Discussed this finding with patient and educated on strict return precautions. Verbal understanding received.. 04/02 17:29 Order name: Urinalysis w/ reflexes; Complete Time: 20:53 kb 04/02 18:00 Order name: CBC with Diff; Complete Time: 20:44 bp 04/02 18:00 Order name: CMP; Complete Time: 20:48 bp 04/02 20:54 Order name: Urine Culture EDMS 04/02 17:29 Order name: US Scrotum Testicles; Complete Time: 18:25 kb 04/02 18:00 Order name: CT Stone Protocol; Complete Time: 19:01 bp 04/02 18:00 Order name: IV Saline Lock; Complete Time: 20:20 bp 04/02 18:00 Order name: Labs collected and sent; Complete Time: 20:20 bp Administered Medications: 21:55 Drug: Ketorolac IVP 15 mg IVP once Route: IVP; Site: right antecubital; pf1 22:10 Follow up: Response: No adverse reaction; Marked relief of symptoms; Pain is decreased pf1 21:55 Drug: Rocephin IV 1 grams IV at calculated rate once; Given slow IV push per pharmacy pf1 instructions Route: IV; Rate: calculated rate; Site: right antecubital; 22:10 Follow up: Response: No adverse reaction; IV Status: Completed infusion pf1 22:00 Drug: Ondansetron IVP 4 mg IVP once; over 2 minutes Route: IVP; Site: right antecubital;pf1 22:10 Follow up: Response: No adverse reaction; Marked relief of symptoms pf1 Disposition: 04/03 07:01 Co-signature as Attending Physician, Keon Chaudhary MD I reviewed the patient's care rn provided by the Advanced Practice Provider and agree with the diagnosis and treatment plan. Disposition Summary: 04/02/23 21:41 Discharge Ordered Notes: Location: Home Condition: Stable kb Diagnosis - Epididymitis kb Followup: kb - With: Emergency Department - When: As needed - Reason: Worsening of condition Followup: kb - With: Private Physician - When: 2 - 3 days - Reason: Recheck today's complaints, Continuance of care, Re-evaluation by your physician Discharge Instructions: - Discharge Summary Sheet kb - Epididymitis kb Forms: - Medication Reconciliation Form kb - Thank You Letter kb - Antibiotic Education kb - Prescription Opioid Use kb - Patient Portal Instructions kb - Leadership Thank You Letter kb Prescriptions: - Doxycycline Hyclate 100 mg Oral Tablet - take 1 tablet ORAL route every 12 hours; 20 tablet; Refills: 0, Product kb Selection Permitted Signatures: Dispatcher [employer] Estelita Jean FNP-C FNP-Ckb Nieto, Roman, MD MD rn Baxter, Heather RN Joey Fletcher RN RN bp Finley, Pamala, RN RN pf1
[2023-04-03 00:24] VITALS: BP 150/96; TEMP 99.3; O2SAT 100
== END ==
LOC: ER 16:45
DX: N45.1 Epididymitis (principal)
CPT/HCPCS: 36415; 74176; 76377; 76870; 80053; 81001; 85025; 87077; 87086; 87088; 87186; 96374; 96375; 99284; J0696; J2405

== ENCOUNTER → 2023-06-10 | Emergency (ER) | payer SELFPAY ==
[~2023-06-10] MED LIST changes: +AZITHROMYCIN 250 MG TAB ONE; -CEFTRIAXONE 1000 MG/VIAL ONE; +DIAZEPAM 5 MG TABLET ONE; +GUAIFENESIN/DM 5 ML UCUP ONE; -KETOROLAC 30 MG/ML INJ ONE; -ONDANSETRON 4 MG/2 ML VIAL ONE
[2023-06-10 03:23] LABS: SARS-CoV-2 Antigen Rapid Res Negative (Negative)
--- NOTE | 2023-06-10 03:37 | EDPHYS ---
Physician Documentation [facility] Name: Hair Powers Age: 43 yrs Sex: Male : 1980 Arrival Date: 06/10/2023 Time: 02:19 Bed 5 Private MD: ED Physician Twin Watts HPI: 06/09 02:31 This 43 yrs old Male presents to ER via Unassigned with complaints of Cough, sp4 Shortness Of Breath, shakes, tingling in arms, Runny Nose. 03:30 Male presents with complaint all parameters shakes tingling in the arms runny nose sp4 cough and shortness of breath starting yesterday. She also states he took one quarter of the NyQuil bottle for his symptoms last night but had no success. . 03:31 Patient reports yellow purulent sputum when he coughs. . sp4 Historical: - Allergies: 02:37 No Known Allergies; cm10 - Home Meds: 02:37 None [Active]; cm10 - PMHx: 02:37 None; cm10 - PSHx: 02:37 Appendectomy; cm10 - Immunization history:: Adult Immunizations up to date. - Social history:: Smoking status: Patient denies any tobacco usage or history of. Patient/guardian denies using street drugs, IV drugs. - Family history:: not pertinent. ROS: 03:32 Constitutional: Negative for fever, positive chills, positive cough, positive runny sp4 nose, positive arm tingling and shakes 03:32 All other systems are negative, Exam: 03:32 Constitutional: This is a well developed, well nourished patient who is awake, alert, sp4 appears anxious and tremulous Head/Face: Normocephalic, atraumatic. Eyes: Pupils equal round and reactive to light, extra-ocular motions intact. Lids and lashes normal. Conjunctiva and sclera are not injected. Cornea within normal limits. Periorbital areas with no swelling, redness, or edema. ENT: Nares patent. No nasal discharge, no septal abnormalities noted. Tympanic membranes are normal and external auditory canals are clear. Oropharynx with no redness, swelling, or masses, exudates, or evidence of obstruction, uvula midline. Mucous membranes moist. Neck: Trachea midline, no thyromegaly or masses palpated, and no cervical lymphadenopathy. Supple, full range of motion without nuchal rigidity, or vertebral point tenderness. Chest/axilla: Normal chest wall appearance and motion. Nontender with no deformity. No lesions are appreciated. Cardiovascular: Regular rate and rhythm with a normal S1 and S2. No gallops, murmurs, or rubs. Normal PMI, no JVD. No pulse deficits. Respiratory: Lungs have equal breath sounds bilaterally, clear to auscultation and percussion. No rales, rhonchi or wheezes noted. No increased work of breathing, no retractions or nasal flaring. Abdomen/GI: Soft, with normal bowel sounds. No distension or tympany. No guarding or rebound. No evidence of tenderness throughout. Back: No spinal tenderness. No costovertebral tenderness. Skin: Warm, dry with normal turgor. Normal color with no rashes, no lesions, and no evidence of cellulitis. MS/ Extremity: Pulses equal, no cyanosis. Neurovascular intact. Full, normal range of motion. Neuro: Awake and alert, GCS 15, oriented to person, place, time, and situation. Cranial nerves II-XII grossly intact. Motor strength 5/5 in all extremities. Sensory grossly intact. Psych: Awake, alert, with orientation to person, place and time. Behavior, mood, and affect are within normal limits Vital Signs: 02:35 BP 157 / 95; Pulse 86; Resp 18; Temp 97.3; Pulse Ox 97% ; Weight 95.25 kg; Height 5 ft. cm10 9 in. ; Pain 0/10; 03:40 BP 133 / 73; Pulse 72; Resp 19; Pulse Ox 94% ; Pain 0/10; jj7 03:48 Temp 97.3(TE); tm6 02:35 Body Mass Index 31.01 (95.25 kg, 175.26 cm) cm10 02:35 Pain Scale: Adult cm10 03:40 Pain Scale: Adult jj7 MDM: 02:31 Patient medically screened. sp4 03:25 Data reviewed: vital signs. ED course: EXAMINATION: XR CHEST 2 VIEWS INDICATION: Male, sp4 43 years old, cough and tremors TECHNIQUE: 2 views COMPARISON(S): None. FINDINGS: SUPPORT DEVICES: None. LUNGS/PLEURA: No consolidation, pleural effusion, or pneumothorax. HEART/MEDIASTINUM: Normal size and configuration. OTHER: No acute osseous findings. IMPRESSION: No acute cardiopulmonary findings.. 03:32 Differential Diagnosis: Bronchitis Influenza Upper Respiratory Infection Sinusitis sp4 Pharyngitis Allergic Rhinitis. Consideration of Admission/Observation Escalation of care including admission/observation considered. ED course: Patient has improved after medications in ER. Patient will be given Zithromax to cover for course of bacterial bronchitis. Will be discharged home with dextromethorphan as needed cough and also Zithromax p.o. for the next 5 days.. 06/09 02:31 Order name: Influenza Screen (a \T\ B); Complete Time: 03:25 sp4 06/09 02:31 Order name: SARS RAPID; Complete Time: 03:25 sp4 06/09 02:38 Order name: Chest Pa And Lat (2 Views) XRAY sp4 Administered Medications: 02:48 Drug: Dextromethorphan-Guaifenesin PO Liquid 10 mg-100 mg/5 mL 10 ml PO once Route: PO; tm6 03:37 Follow up: Response: Marked relief of symptoms jj7 02:48 Drug: Diazepam PO 10 mg PO once Route: PO; tm6 03:37 Follow up: Response: Marked relief of symptoms jj7 03:48 Drug: AZITHromycin PO 500 mg PO once Route: PO; tm6 03:50 Follow up: Response: No adverse reaction jj7 Disposition Summary: 06/10/23 03:37 Discharge Ordered Notes: Location: Home sp4 Problem: new sp4 Symptoms: have improved sp4 Condition: Stable sp4 Diagnosis - Acute bronchitis, unspecified sp4 - Other specified anxiety disorders sp4 Followup: sp4 - With: Private Physician - When: 7 - 10 days - Reason: Recheck today's complaints Discharge Instructions: - Discharge Summary Sheet sp4 - Acute Bronchitis, Adult sp4 Forms: - Patient Portal Instructions sp4 Prescriptions: - dextromethorphan-guaifenesin 10-200 mg Oral capsule - take 2 capsule ORAL route every 6 hours PRN cough; 42 capsule; Refills: 0, sp4 Product Selection Permitted - Zithromax Z-Hira 250 mg Oral Tablet - take 1 tablet ORAL route as directed for 5 days Day 1 - take two (2) tablets sp4 one time. Day 2, 3, 4 , 5 take one (1) tablet once daily.; 6 tablet; Refills: 0, Product Selection Permitted Signatures: Dispatcher [employer] Twin [place] MD MD sp4 Shannan Urbano RN RN cm10 Elba Oliva RN RN tm6 Lainey Carr RN jj7
--- NOTE | 2023-06-10 03:37 | ER ---
Nurse's Notes [facility] Name: Hair Powers Age: 43 yrs Sex: Male : 1980 Arrival Date: 06/10/2023 Time: 02:19 Bed 5 Private MD: Diagnosis: Acute bronchitis, unspecified;Other specified anxiety disorders Presentation: 06/09 02:35 Chief complaint: Patient states: Woke up tonight and was jittery and shaking. Pt cm10 reports that before going to bed he drank approximately 1/4 of a bottle of NyQuil. Coronavirus screen: Client denies travel out of the [place] in the last 14 days. At this time, the client does not indicate any symptoms associated with coronavirus-19. Ebola Screen: Patient denies travel to an Ebola-affected area in the 21 days before illness onset. No symptoms or risks identified at this time. Initial Sepsis Screen: Does the patient meet any 2 criteria? No. Patient's initial sepsis screen is negative. Does the patient have a suspected source of infection? No. Patient's initial sepsis screen is negative. Risk Assessment: Do you want to hurt yourself or someone else? Patient reports no desire to harm self or others. Onset of symptoms was June 10, 2023. 02:35 Method Of Arrival: Ambulatory cm10 02:35 Acuity: ALEXIS 3 cm10 Triage Assessment: 02:37 General: Appears in no apparent distress. Behavior is anxious. Pain: Denies pain. cm10 Neuro: No deficits noted. Level of Consciousness is awake, alert, obeys commands, Oriented to person, place, time, situation. Historical: - Allergies: 02:37 No Known Allergies; cm10 - Home Meds: 02:37 None [Active]; cm10 - PMHx: 02:37 None; cm10 - PSHx: 02:37 Appendectomy; cm10 - Immunization history:: Adult Immunizations up to date. - Social history:: Smoking status: Patient denies any tobacco usage or history of. Patient/guardian denies using street drugs, IV drugs. - Family history:: not pertinent. Screenin:35 [facility] ED Fall Risk Assessment (Adult) History of falling in the last 3 months, jj7 including since admission No falls in past 3 months (0 pts) Confusion or Disorientation No (0 pts) Intoxicated or Sedated No (0 pts) Impaired Gait No (0 pts) Mobility Assist Device Used No (0 pt) Altered Elimination No (0 pt) Score/Fall Risk Level 0 - 2 = Low Risk Oriented to surroundings, Maintained a safe environment, Educated pt \T\ family on fall prevention, incl call for assistance when getting out of bed. Abuse screen: Denies threats or abuse. Nutritional screening: No deficits noted. Tuberculosis screening: No symptoms or risk factors identified. Assessment: 02:35 General: Appears in no apparent distress. comfortable, Behavior is cooperative, jj7 appropriate for age, anxious. Cardiovascular: No deficits noted. Rhythm is regular. Respiratory: Airway is patent Respiratory effort is even, unlabored. 03:48 Respiratory: Breath sounds are clear bilaterally. jj7 Vital Signs: 02:35 BP 157 / 95; Pulse 86; Resp 18; Temp 97.3; Pulse Ox 97% ; Weight 95.25 kg; Height 5 ft. cm10 9 in. ; Pain 0/10; 03:40 BP 133 / 73; Pulse 72; Resp 19; Pulse Ox 94% ; Pain 0/10; jj7 03:48 Temp 97.3(TE); tm6 02:35 Body Mass Index 31.01 (95.25 kg, 175.26 cm) cm10 02:35 Pain Scale: Adult cm10 03:40 Pain Scale: Adult jj7 ED Course: 02:22 Patient arrived in ED. gm2 02:29 Lainey Carr RN is Primary Nurse. jj7 02:31 Twin Watts MD is Attending Physician. sp4 02:35 Patient has correct armband on for positive identification. Placed in gown. Bed in low jj7 position. Call light in reach. Side rails up X2. 02:35 No provider procedures requiring assistance completed. jj7 02:37 Triage completed. cm10 02:37 Arm band placed on Patient placed in an exam room, on a stretcher, on pulse oximetry. cm10 02:39 SARS RAPID Sent. tm6 02:39 Influenza Screen (a \T\ B) Sent. tm6 03:05 Chest Pa And Lat (2 Views) XRAY In Process Unspecified. EDMS 03:48 Patient did not have IV access during this emergency room visit. jj7 03:49 Provided Education on: MEASURING MEDICATIONS. MED CUP PROVIDED. jj7 Administered Medications: 02:48 Drug: Dextromethorphan-Guaifenesin PO Liquid 10 mg-100 mg/5 mL 10 ml PO once Route: PO; tm6 03:37 Follow up: Response: Marked relief of symptoms jj7 02:48 Drug: Diazepam PO 10 mg PO once Route: PO; tm6 03:37 Follow up: Response: Marked relief of symptoms jj7 03:48 Drug: AZITHromycin PO 500 mg PO once Route: PO; tm6 03:50 Follow up: Response: No adverse reaction jj7 Medication: 02:35 VIS not applicable for this client. jj7 Outcome: 03:37 Discharge ordered by MD. jj 03:48 Discharged to home ambulatory, with family, jj7 03:48 Condition: improved 03:48 Discharge instructions given to patient, Instructed on discharge instructions, medication usage, Demonstrated understanding of instructions, medications, Prescriptions given X 2, 03:50 Patient left the ED. jj7 Signatures: Dispatcher [employer] EDLainey Broussard RN RN jj7 Twin Watts MD MD sp4 Shannan Urbano RN RN cm10 Jessica Quiroz 2 Elba Oliva RN RN tm6
[2023-06-10 04:08] VITALS: BP 133/73; TEMP 97.3; O2SAT 94
--- NOTE | 2023-06-10 13:36 | RAD REPORT ---
EXAM DESCRIPTION: XR CHEST 2 VIEWS CLINICAL HISTORY: Male, 43 years old, cough and tremors TECHNIQUE: 2 views COMPARISON: None. FINDINGS: SUPPORT DEVICES: None. LUNGS/PLEURA: No consolidation, pleural effusion, or pneumothorax. HEART/MEDIASTINUM: Normal size and configuration. OTHER: No acute osseous findings. IMPRESSION: No acute cardiopulmonary findings. Electronically signed by: Soy Fox MD 06/10/2023 03:17 AM ENERGY CONSERVATION ENGINEER Due to temporary technical issues with the PACS/Fluency reporting system, reports are being signed by the in house radiologists without review as a courtesy to insure prompt reporting. The interpreting radiologist is fully responsible for the content of the report.
== END ==
LOC: ER 02:19
DX: J20.9 Acute bronchitis, unspecified (principal); F41.8 Other specified anxiety disorders; Z11.52 Encounter for screening for COVID-19
CPT/HCPCS: 36415; 71046; 87804; 87811; 99284

== ENCOUNTER 2024-03-05 10:29 | Emergency (ER) | payer SELFPAY ==
[2024-03-05 11:24] LABS: Absolute Eosinophils 0.1 K/uL (0-0.5); Absolute Monocytes 0.7 K/uL (0.1-1.3); Absolute Neutrophil 6.9 K/uL (1.8-8.0); Basophils % 0.5 % (0-1.3); Eosinophils % 1.3 % (0-4.4); Hematocrit 47.2 % (39.6-49.0); Hemoglobin 15.5 g/dL (13.6-17.9); Lymphocytes % 20.5 % (15.3-44.8); MCH 29.5 pg (27.0-35.0); MCHC 32.9 g/dL (32.0-36.0); MCV 89.6 fL (80-100); MPV 9.7 fL (7.6-11.3); Monocytes % 6.9 % (3.3-12.3); Neutrophils % 70.8 % (41.7-73.7); Platelets 251 thou/uL (152-406); RBC Red Blood Cell Count 5.26 M/uL (4.33-5.43); Red Cell Distribution Width 13.4 % (12.1-15.2)
[2024-03-05] MEDS ORDERED: FAMOTIDINE 20 MG/2 ML VIAL IV ONE (11:24)
[2024-03-05] MEDS ORDERED: ONDANSETRON 4 MG/2 ML VIAL ONE (11:24)
[2024-03-05] MEDS ORDERED: MORPHINE 4 MG/ML SYR ONE (11:24)
--- NOTE | 2024-03-05 11:31 | RAD REPORT ---
EXAMINATION: CT ABDOMEN AND PELVIS WITH CONTRAST CLINICAL INDICATION: Abdominal pain TECHNIQUE: CT abdomen and pelvis was performed, after the administration of 100 cc Isovue-300.. Sagit pradeep and coronal reconstructions were obtained. One or more of the following dose reduction techniques were used: Automated exposure control, adjustment of the mA and kV according to patient si ze, and iterative reconstruction. Unless otherwise specified, incidental findings do not require dedicated imaging follow-up. [id number]. Oral contrast was not given which limits evaluation of bowel and appendix. COMPARISON: .February 2024 FINDINGS: Fatty liver. The spleen, pancreas, adrenals and right kidney unremarkable Left renal cortical thinning unchanged Diverticula stem from the colon. Mild to moderate stranding adjacent to the proximal sigmoid colon. N o abscess. No free air. Moderate anterior subluxation L5 on S1. Spondylolysis L5. Small umbilical hernia : IMPRESSION: Mild to moderate sigmoid diverticulitis
[2024-03-05 11:43] LABS: Albumin 3.6 g/dL (3.4-5.0); Albumin/Globulin Ratio 0.7 (1.1-1.8); Anion Gap 6.7 mEq/L (5.0-15.0); Bilirubin Total 0.8 mg/dL (0.2-1.0); Potassium 3.7 mEq/L (3.5-5.1); Protein, Total 8.6 g/dL (6.4-8.2)
[2024-03-05] MEDS ORDERED: AMOX/K CLAV 875 MG TAB ONE (11:51)
--- NOTE | 2024-03-05 11:51 | EDPHYS ---
Physician Documentation [facility] Name: Hair Powers Age: 43 yrs Sex: Male : 1980 Arrival Date: 03/05/2024 Time: 10:29 Bed 15 Private MD: ED Physician Behzad Lantigua HPI: 03/05 10:57 This 43 yrs old Male presents to ER via Ambulatory with complaints of Flank ms3 Pain. 10:57 Hair Powers, a 43-year-old male, presents to the emergency department with right ms3 lower quadrant abdominal pain that began last night. The pain, described as 7 out of 10 in intensity, radiates to his back. He has a history of appendectomy. He reports constipation but no nausea or vomiting. It is uncertain if he had a fever last night as he felt hot but does not believe it was a fever. The pain is primarily in the right lower quadrant but also spreads across the abdomen, including the epigastric area.. Historical: - Allergies: 10:53 No Known Allergies; iw - PSHx: 10:53 Appendectomy; iw - Immunization history:: Adult Immunizations up to date. - Infectious Disease History:: Denies. - Social history:: Smoking status: unknown. ROS: 10:57 Constitutional: Negative for fever, and chills. Cardiovascular: Negative for chest ms3 pain, and palpitations. Respiratory: Negative for shortness of breath, cough, wheezing, and pleuritic chest pain, 10:57 MS/Extremity: Negative for injury and deformity, Skin: Negative for injury, rash, and discoloration, 10:57 Abdomen/GI: Positive for abdominal pain, Exam: 10:57 Constitutional: This is a well developed, well nourished patient who is awake, alert, ms3 and in no acute distress. Chest/axilla: Normal chest wall appearance and motion. Nontender with no deformity. Cardiovascular: Regular rate and rhythm with a normal S1 and S2. No gallops, murmurs, or rubs. Normal PMI, no JVD. No pulse deficits. Respiratory: Lungs have equal breath sounds bilaterally, clear to auscultation and percussion. No rales, rhonchi or wheezes noted. No increased work of breathing, no retractions or nasal flaring. 10:57 Skin: Warm, dry with normal turgor. Normal color with no rashes, no lesions, and no evidence of cellulitis. MS/ Extremity: Pulses equal, no cyanosis. Neurovascular intact. Full, normal range of motion. 10:57 Abdomen/GI: Inspection: abdomen appears normal, Bowel sounds: normal, Palpation: mild abdominal tenderness, in all quadrants, Vital Signs: 10:54 BP 121 / 86; Pulse 73; Resp 16; Temp 98.2; Pulse Ox 99% ; Weight 95.25 kg; Height 5 ft. iw 8 in. ; Pain 7/10; 12:05 BP 122 / 82; Pulse 75; Resp 16 S; Pulse Ox 98% on R/A; kc6 10:54 Body Mass Index 31.93 (95.25 kg, 172.72 cm) iw 10:54 Pain Scale: Adult iw MDM: 10:56 Medical Screening Exam initiated ms3 10:57 Differential diagnosis: pancreatitis, Diverticulitis vs Abdominal pain. ms3 21:27 Data reviewed: vital signs, nurses notes, lab test result(s), and as a result, I will ms3 discharge patient. I considered the following discharge prescriptions or medication management in the emergency department Medications were administered in the Emergency Department. See MAR. Counseling: I had a detailed discussion with the patient and/or guardian regarding the historical points, exam findings, and any diagnostic results supporting the discharge/admit diagnosis, lab results, radiology results, the need for outpatient follow up, to return to the emergency department if symptoms worsen or persist or if there are any questions or concerns that arise at home. Special discussion: Based on the patient's Hx, exam, and Dx evaluation, there is no indication for emergent surgery or inpatient Tx. It is understood by the patient/guardian that if the Sx's persist or worsen they need to return immediately for re-evaluation. ED course: Discussed CT, Labs with patient. Patient to follow up with PMD in 2-3 days. Patient given Rx fro Augmenting. All questions answered. Return precautions discussed to include fevers, worsening symptoms, or any concerns. On re-evaluation patient is a/o x4, nad, non-toxic, ambulatory in ED, speaking full sentences, abdominal exam benign. . 03/05 10:48 Order name: CBC with Diff; Complete Time: 11:33 ms3 03/05 10:48 Order name: CMP; Complete Time: 11:49 ms3 03/05 10:48 Order name: Lipase; Complete Time: 11:49 ms3 03/05 10:48 Order name: CT Abd/Pelvis - IV Contrast Only; Complete Time: 11:33 ms3 03/05 10:48 Order name: IV Saline Lock; Complete Time: 11:22 ms3 03/05 10:48 Order name: Labs collected and sent; Complete Time: 11:22 ms3 Administered Medications: 11:33 Drug: Famotidine IVP 20 mg IVP once; dilute with 10 mL 0.9% NaCl; give over 2 minutes kc6 Route: IVP; Site: left antecubital; 11:53 Follow up: Response: No adverse reaction kc6 11:33 Drug: Ondansetron IVP 4 mg IVP once; over 2 minutes Route: IVP; Site: left antecubital; kc6 11:53 Follow up: Response: No adverse reaction kc6 11:33 Drug: morphine IVP or IV 4 mg IVP once over 4 mins Route: IVP; Infused Over: 4 mins; kc6 Site: left antecubital; 11:53 Follow up: Response: No adverse reaction; Pain is decreased kc6 11:53 Drug: Amoxicillin-Clavulanate PO 875 mg PO once Route: PO; kc6 12:05 Follow up: Response: No adverse reaction kc6 Disposition Summary: 03/05/24 11:50 Discharge Ordered Notes: Location: Home ms3 Condition: Stable ms3 Diagnosis - Diverticulitis of intestine, part unspecified, without perforation or abscess ms3 without bleeding - Abdominal pain, unspecified ms3 Followup: ms3 - With: Fabio Funk DO - When: 2 - 3 days - Reason: Recheck today's complaints Discharge Instructions: - Discharge Summary Sheet ms3 - Abdominal Pain, Adult ms3 - Diverticulitis ms3 Forms: - Medication Reconciliation Form ms3 - Antibiotic Education ms3 - Prescription Opioid Use ms3 - Patient Portal Instructions ms3 - Leadership Thank You Letter ms3 - Work release form kc6 Prescriptions: - Augmentin 875-125 mg Oral Tablet - take 1 tablet ORAL route every 12 hours for 10 days; 20 tablet; Refills: 0, ms3 Product Selection Permitted Signatures: Dispatcher [employer] Samina Kim RN RN iw Behzad Lantigua DO DO ms3 Madie Madrigal, RN RN kc6
--- NOTE | 2024-03-05 11:51 | ER ---
Nurse's Notes [facility] Name: Hair Powers Age: 43 yrs Sex: Male : 1980 Arrival Date: 03/05/2024 Time: 10:29 Bed 15 Private MD: Diagnosis: Diverticulitis of intestine, part unspecified, without perforation or abscess without bleeding;Abdominal pain, unspecified Presentation: 03/05 10:53 Chief complaint: Patient states: right abd pain X 2 weeks was seen here and told he had iw a urine infection. Coronavirus screen: At this time, the client does not indicate any symptoms associated with coronavirus-19. Ebola Screen: No symptoms or risks identified at this time. 10:53 Method Of Arrival: Ambulatory iw 10:53 Acuity: ALEXIS 3 iw 11:35 Initial Sepsis Screen: Does the patient meet any 2 criteria? No. Patient's initial kc6 sepsis screen is negative. Does the patient have a suspected source of infection? No. Patient's initial sepsis screen is negative. Risk Assessment: Do you want to hurt yourself or someone else? Patient reports no desire to harm self or others. Onset of symptoms was March 05, 2024. Historical: - Allergies: 10:53 No Known Allergies; iw - PSHx: 10:53 Appendectomy; iw - Immunization history:: Adult Immunizations up to date. - Infectious Disease History:: Denies. - Social history:: Smoking status: unknown. Screenin:33 [facility] ED Fall Risk Assessment (Adult) History of falling in the last 3 months, kc6 including since admission No falls in past 3 months (0 pts) Confusion or Disorientation No (0 pts) Intoxicated or Sedated No (0 pts) Impaired Gait No (0 pts) Mobility Assist Device Used No (0 pt) Altered Elimination No (0 pt) Score/Fall Risk Level 0 - 2 = Low Risk Oriented to surroundings, Maintained a safe environment. Abuse screen: Denies threats or abuse. Denies injuries from another. Nutritional screening: No deficits noted. Tuberculosis screening: No symptoms or risk factors identified. Assessment: 11:34 General: Appears in no apparent distress. comfortable, well groomed, well developed, kc6 Behavior is calm, cooperative, appropriate for age. Pain: Complains of pain in right upper quadrant and right lower quadrant Pain began years ago. Neuro: Level of Consciousness is awake, alert, obeys commands, Oriented to person, place, time, situation, Appropriate for age. Cardiovascular: Capillary refill < 3 seconds. Respiratory: Airway is patent Trachea midline Respiratory effort is even, unlabored, Respiratory pattern is regular, symmetrical. GI: Abdomen is flat, non-distended, Reports lower abdominal pain, upper abdominal pain, Patient currently denies diarrhea, nausea, vomiting. : No signs and/or symptoms were reported regarding the genitourinary system. EENT: No signs and/or symptoms were reported regarding the EENT system. Derm: No signs and/or symptoms reported regarding the dermatologic system. Skin is intact, is healthy with good turgor, Skin is pink, warm \T\ dry. Musculoskeletal: No signs and/or symptoms reported regarding the musculoskeletal system. Circulation, motion, and sensation intact. Capillary refill < 3 seconds, Range of motion: intact in all extremities. Vital Signs: 10:54 BP 121 / 86; Pulse 73; Resp 16; Temp 98.2; Pulse Ox 99% ; Weight 95.25 kg; Height 5 ft. iw 8 in. ; Pain 7/10; 12:05 BP 122 / 82; Pulse 75; Resp 16 S; Pulse Ox 98% on R/A; kc6 10:54 Body Mass Index 31.93 (95.25 kg, 172.72 cm) iw 10:54 Pain Scale: Adult iw ED Course: 10:33 Patient arrived in ED. iw 10:35 Behzad Lantigua DO is Attending Physician. ms3 10:53 Triage completed. iw 11:11 CT Abd/Pelvis - IV Contrast Only In Process Unspecified. EDMS 11:13 CT completed. Patient tolerated procedure well. Note: 20 g to lt ac by zuri in ct, sj labs collected and sent. 11:20 Madie Madrigal, RN is Primary Nurse. kc6 11:33 Inserted saline lock: 20 gauge in left antecubital area, using aseptic technique. Blood kc6 collected. Flushed with 10 mL NS. Patient maintains SpO2 saturation greater than 95% on room air. 11:33 Patient has correct armband on for positive identification. Bed in low position. Call kc6 light in reach. Side rails up X 1. Pulse ox on. NIBP on. Door closed. Noise minimized. Lights dimmed. Pillow given. 11:34 Arm band placed on. kc6 11:50 Fabio Funk DO is Referral Physician. ms3 12:06 No provider procedures requiring assistance completed. IV discontinued, intact, kc6 bleeding controlled, No redness/swelling at site. Pressure dressing applied. Administered Medications: 11:33 Drug: Famotidine IVP 20 mg IVP once; dilute with 10 mL 0.9% NaCl; give over 2 minutes kc6 Route: IVP; Site: left antecubital; 11:53 Follow up: Response: No adverse reaction kc6 11:33 Drug: Ondansetron IVP 4 mg IVP once; over 2 minutes Route: IVP; Site: left antecubital; kc6 11:53 Follow up: Response: No adverse reaction kc6 11:33 Drug: morphine IVP or IV 4 mg IVP once over 4 mins Route: IVP; Infused Over: 4 mins; kc6 Site: left antecubital; 11:53 Follow up: Response: No adverse reaction; Pain is decreased kc6 11:53 Drug: Amoxicillin-Clavulanate PO 875 mg PO once Route: PO; kc6 12:05 Follow up: Response: No adverse reaction kc6 Medication: 12:06 VIS not applicable for this client. kc6 Outcome: 11:50 Discharge ordered by . ms3 12:06 Discharged to home ambulatory, kc6 12:06 Condition: good 12:06 Discharge instructions given to patient, Instructed on discharge instructions, follow up and referral plans. no drinking with medication, no driving heavy equipment, medication usage, Demonstrated understanding of instructions, follow-up care, medications, Prescriptions given X 1, 12:06 Patient left the ED. kc6 Signatures: Dispatcher [employer] Zuri Osullivan Irene, Behzad Cruz RN, DO DO ms3 Madie Madrigal RN RN kc6
[2024-03-05 12:31] VITALS: TEMP 98.2
[2024-03-05 12:32] VITALS: BP 122/82; O2SAT 98
== END 2024-03-05 12:06 | disposition home or self-care (01) ==
LOC: ER 10:29
DX: K57.32 Diverticulitis of large intestine without perforation or abscess without bleeding (principal)
CPT/HCPCS: 36415; 74177; 80053; 83690; 85025; 96374; 96375; 99284; J2405; Q9967